=== PATIENT | female | born 1945 | race Caucasian/White ===

== ENCOUNTER 2020-09-03 07:01 | Emergency (ER) | payer MEDICARE, OTHER ==
[2020-09-03 08:29] LABS: HEMOGLOBIN 13.4 gm/dl (12.3-15.3); RED BLOOD COUNT 4.39 M/UL (4.00-5.10); WHITE BLOOD COUNT 9.8 K/UL (4.5-11.0)
[2020-09-03 08:46] LABS: BUN/CREATININE RATIO 28 (0-10)
[2020-09-03] MEDS ORDERED: HYDROCODON-ACE1 EAC4 PO ×2 (11:43→11:48)
[2020-09-03] MEDS ORDERED: SENOKOT-S TABL1 EACH PO (11:48)
== END 2020-09-03 14:25 | disposition home or self-care (01) ==
LOC: ER1 07:01
PROVIDERS: Family Medicine
DX: S32.011A Stable burst fracture of first lumbar vertebra, initial encounter for closed fracture (principal); S32.018A Other fracture of first lumbar vertebra, initial encounter for closed fracture; M06.9 Rheumatoid arthritis, unspecified; M51.36 Other intervertebral disc degeneration, lumbar region; M48.061 Spinal stenosis, lumbar region without neurogenic claudication; M43.16 Spondylolisthesis, lumbar region; Z79.899 Other long term (current) drug therapy; X58.XXXA Exposure to other specified factors, initial encounter
CPT/HCPCS: 72131; 80048; 81001; 85025; 99284

== ENCOUNTER 2021-02-02 13:23 | Emergency (ER) | payer MEDICARE, OTHER ==
[~2021-02-02 13:23] MED LIST: HYDROCODON-ACE1 EAC4 PO; SENOKOT-S TABL1 EACH PO
[2021-02-02 15:27] LABS: HEMOGLOBIN 15.6 gm/dl (12.3-15.3); RED BLOOD COUNT 5.01 M/UL (4.00-5.10); WHITE BLOOD COUNT 11.6 K/UL (4.5-11.0)
[2021-02-02 16:18] LABS: BUN/CREATININE RATIO 33 (0-10)
[2021-02-02] MEDS ORDERED: LASIX40 MG PO (17:33)
[2021-02-02] MEDS ORDERED: K-DUR TAB 20 M20 MEQ PO (17:33)
== END 2021-02-02 17:42 | disposition home or self-care (01) ==
LOC: ER1 13:23
PROVIDERS: Physician Assistant
DX: I11.0 Hypertensive heart disease with heart failure (principal); I50.9 Heart failure, unspecified; R60.0 Localized edema; E87.6 Hypokalemia; Z79.899 Other long term (current) drug therapy
CPT/HCPCS: 71046; 80053; 82550; 82553; 83874; 83880; 84484; 85025; 93005; 99285